=== PATIENT | male | born 1970 | race Caucasian/White ===

== ENCOUNTER 2017-11-20 10:02 | Emergency (ER) | payer OTHER ==
[~2017-11-20] VITALS: Ht 175.3 cm; Wt 72.6 kg
--- NOTE | 2017-11-20 10:34 | ED NECK/BACK PAIN COMPLAINT ---
History of Present Illness General Chief Complaint: Low Back Pain/Injury Stated Complaint: LBP Source: patient Exam Limitations: no limitations Vital Signs & Intake/Output Vital Signs & Intake/Output Vital Signs Date Time Temp Pulse Resp B/P B/P Pulse O2 O2 Flow FiO2 Mean Ox Delivery Rate 11/20 1007 97.9 80 20 129/80 97 Room Air Allergies Coded Allergies: No Known Allergies (11/20/17) Reconcile Medications Amantadine HCl (Amantadine) 100 MG TABLET 1 TAB PO DAILY MENTAL HEALTH ( Reported) Buspirone HCl 15 MG TABLET 1 TAB PO DAILY MENTAL HEALTH (Reported) Citalopram Hydrobromide (Celexa) 40 MG TABLET 1 TAB PO DAILY MENTAL HEALTH ( Reported) Cyclobenzaprine HCl 5 MG TABLET 1 TAB PO TIDPRN PRN muscle strain Divalproex Sodium (Depakote ER) 250 MG TAB.ER.24H 3 TAB PO BID MENTAL HEALTH (Reported) Hydroxyzine Pamoate 100 MG CAPSULE 1 CAP PO QPM MENTAL HEALTH (Reported) Meloxicam (Mobic) 15 MG TABLET 1 TAB PO DAILY PRN pain Propranolol HCl 20 MG TABLET 1 TAB PO BID MENTAL HEALTH (Reported) Quetiapine Fumarate (Seroquel XR) 300 MG TAB.ER.24H 1 TAB PO QPM MENTAL HEALTH (Reported) Ropinirole Hydrochloride (Requip) 0.25 MG TABLET 1 TAB PO QPM RESTLESS LEGS ( Reported) Trazodone HCl 100 MG TABLET 1 TAB PO QPM SLEEP (Reported) Triage Note: PT TO ED C/O LEFT LOW BACK PAIN X 4 DAYS. TRIED OTC MEDS WITH NO RELIEF. DENIES OBVIOUS INJURY. Triage Nurses Notes Reviewed? yes Onset: Gradual Duration: day(s): Timing: recent history Quality/Severity: moderate Location: LEFT BACK Radiation: none HPI: 47yo male with hx of schizophrenia, bipolar disorder presents to ED complaining of sudden left flank pain. Pain described as sharp, nonradiating. Pain is worse with lying in certain positions. Patient has tried tyelenol and advil without relief of his symptoms. He also notes urinary urgency for the past two months. The patient recently began Lituda for bipolar disorder. The patient notes that recently he has been sleeping on the couch. The patient denies dyspnea, chest pain, abdominal pain, dysuria, hematuria, fevers, chills, fall or trauma. (Milena Vanessa) Past History Travel History Traveled to [place] past 21 day No Medical History Any Pertinent Medical History? see below for history Psychiatric: bipolar disease, depression, schizophrenia Surgical History Surgical History: non-contributory Psychosocial History What is your primary language [place]ian Tobacco Use: Current Daily Use Daily Tobacco Use Amount/Type: => 5 Cigarettes daily ETOH Use: denies use Illicit Drug Use: denies illicit drug use Family History Hx Contributory? No (Milena Vanessa) Review of Systems Review of Systems Constitutional: Reports: no symptoms. Eyes: Reports: no symptoms. Ears, Nose, Throat, Mouth: Reports: no symptoms. Respiratory: Reports: no symptoms. Cardiovascular: Reports: no symptoms. Gastrointestinal/Abdominal: Reports: no symptoms. Musculoskeletal: Reports: see HPI. Skin: Reports: no symptoms. Neurological/Psychological: Reports: no symptoms. All Other Systems: Reviewed and Negative (Milena Vanessa) Physical Exam Physical Exam General Appearance: well developed/nourished, no apparent distress, alert, awake Head: atraumatic, normal appearance Eyes: Bilateral: normal appearance. Ears, Nose, Throat, Mouth: hearing grossly normal Neck: normal inspection, supple, full range of motion Respiratory: normal breath sounds, no respiratory distress, lungs clear Cardiovascular: regular rate/rhythm Gastrointestinal: normal bowel sounds, soft, non-tender, no organomegaly Back: normal inspection, normal range of motion, no vertebral tenderness, left sided paraspinal muscle tenderness, no CVA tenderness Extremities: normal range of motion Neurologic/Psych: awake, alert, oriented x 3, strength 5/5 equal bilateral lower extremities Skin: intact, normal color, warm/dry Core Measures CVA/TIA Diagnosis: No (Milena Vanessa) Progress Differential Diagnosis: herniated disc, myofascial strain, pyelo/UTI, sciatica, T/L spine injury Plan of Care: Orders Procedure Date/time Status URINALYSIS 11/20 1105 Complete Laboratory Tests 11/20/17 1110: Urine Color YEL, Urine Clarity CLEAR, Urine pH 6.0, Ur Specific [place] 1.015, Urine Protein NEG, Urine Ketones NEG, Urine Nitrite NEG, Urine Bilirubin NEG, Urine Urobilinogen 0.2, Ur Leukocyte Esterase NEG, Ur Microscopic EXAM NOT REQUIRED, Urine Hemoglobin NEG, Urine Glucose NEG UA shows no evidence of infection or RBCs to indicate kidney stone. Patient's pain is reproducible to left paraspinal muscles. No bony tenderness to warrant necessity of x-rays. Symptoms are likely related to muscle strain. Patient to begin medications to help with his symptoms and follow-up with his primary care doctor. He agrees with the plan of care. He is ambulatory without difficulty here in the emergency department. (Milena Vanessa) Departure Departure Disposition: HOME OR SELF CARE Condition: Stable Clinical Impression Primary Impression: Muscle strain Referrals: Patient Has No Primary Care Dr (PCP/Family) Additional Instructions: Take flexoril as prescribed for muscle strain. Take meloxicam as prescribed as needed for pain and inflammation. Return if you have worsening symptoms or concerns. Please note that there might be incidental findings in your evaluation that are unrelated to the current emergency department visit. Please notify your primary care doctor about this emergency department visit in order to obtain and review all of the testing performed so that these incidental findings can be monitored as needed. If you had an x-ray performed, please understand that some fractures may not be seen on the initial set of x-rays. If your symptoms persist you might need a repeat set of x-rays to check for such a fracture. If you had a laceration evaluated, please understand that foreign bodies such as glass or wood may not be visible to the naked eye or on plain x-rays. If the wound becomes red, swollen, increasingly more painful or if there is any drainage from the wound, please have it reevaluated by a physician for the possibility of a retained foreign body. If you're unable to follow up as outlined in the discharge instructions please return to the emergency department. Thank you for choosing the [facility] Emergency Department for your care. It was a pleasure to serve you today. Departure Forms: Customer Survey General Discharge Information Prescriptions: Current Visit Scripts Meloxicam (Mobic) 1 TAB PO DAILY PRN pain #15 TAB Cyclobenzaprine HCl 1 TAB PO TIDPRN PRN muscle strain #15 TAB (Milena Vanessa) PA/PULP MIXER Co-Sign Statement Statement: ED Attending supervision documentation- [] I saw and evaluated the patient. I have also reviewed all the pertinent lab results and diagnostic results. I agree with the findings and the plan of care as documented in the PA's/PULP MIXER's documentation. [x] I have reviewed the ED Record and agree with the PA's/PULP MIXER's documentation. [] Additions or exceptions (if any) to the PAs/PULP MIXER's note and plan are summarized below: [] (Geronimo Funes DO)
[2017-11-20] MEDS ORDERED: AMANTADINE100 M2 PO (10:55)
[2017-11-20] MEDS ORDERED: DEPAKOTE ER250 M1 PO (10:56)
[2017-11-20] MEDS ORDERED: CELEXA40 M1 PO (10:56)
[2017-11-20] MEDS ORDERED: BUSPIRONE HCL15 M1 PO (10:56)
[2017-11-20] MEDS ORDERED: SEROQUEL XR300 M1 PO (10:57)
[2017-11-20] MEDS ORDERED: PROPRANOLOL HCL20 M1 PO (10:57)
[2017-11-20] MEDS ORDERED: TRAZODONE HCL100 M1 PO (10:57)
[2017-11-20] MEDS ORDERED: REQUIP0.25 MG PO (10:58)
[2017-11-20] MEDS ORDERED: HYDROXYZINE PA100 M1 PO (10:58)
[2017-11-20] MEDS ORDERED: CYCLOBENZAPRINE5 M2 PO (11:44)
[2017-11-20] MEDS ORDERED: MOBIC15 M1 PO (11:44)
[2017-11-20 11:48] VITALS: BP 118/72
== END 2017-11-20 11:50 ==
LOC: ERH 10:02
DX: R10.9 Unspecified abdominal pain (principal)
CPT/HCPCS: 81003